=== PATIENT | female | born 1995 | race Caucasian/White ===

== ENCOUNTER 2016-11-13 02:38 | Emergency (ER) | payer OTHER ==
[2016-11-13] MEDS ORDERED: DEXAMETHASONE 10 MG/ML VIAL PO STA (02:59)
[2016-11-13] MEDS ORDERED: ALBUTEROL NEB 2.5 MG/3 ML INH STA (02:59)
[2016-11-13] MEDS ORDERED: CETIRIZINE 10 MG TABLET PO STA (02:59)
[2016-11-13] MEDS ORDERED: ALBUTEROL NEB 2.5 MG/3 ML INH ONE (03:11)
[2016-11-13] MEDS ORDERED: CETIRIZINE 10 MG TABLET ONE (03:17)
[2016-11-13] MEDS ORDERED: CHERRY SYRUP 10 ML UDC PO ONE (03:17)
[2016-11-13] MEDS ORDERED: DEXAMETHASONE 10 MG/ML VIAL ONE (03:17)
--- NOTE | 2016-11-13 03:37 | ED Physician Documentation ---
PD HPI DYSPNEA - Stated complaint Stated Complaint: DIFF BREATHING - Chief complaint Chief Complaint: Resp - History obtained from History obtained from: Patient - History of Present Illness Timing - onset: How many days ago (few) Timing - onset during: Light activity Timing - duration: Days (few days of some cough, congestion and increased wheezing, feeling like her asthma is increased.) Timing - details: Gradual onset, Waxing and waning Inciting event(s): URI. No: Out of meds, Allergic rxn/anaphylaxis, Immobilization/travel Worsened by: Exertion, Coughing. No: Laying flat Associated symptoms: Cough, Wheezing. No: Fever, Hemoptysis, Chest pain / discomfort Similar symptoms before: Diagnosis (asthma, allergies, URIs.) Recently seen: Emergency Dept (seen at [facility] earlier today with neb treatment. No other Rx given, per patient. had pelvic U/S for early .) Review of Systems Constitutional: denies: Fever, Chills Nose: reports: Rhinorrhea / runny nose, Congestion Throat: denies: Sore throat Respiratory: reports: Cough GI: reports: Nausea. denies: Vomiting, Diarrhea : reports: Now EGA (8 weeks). denies: Vaginal bleeding PD PAST MEDICAL HISTORY - Past Medical History Past Medical History: Yes Cardiovascular: None Respiratory: Asthma Neuro: None Endocrine/Autoimmune: None GI: None SECONDARY CONNECTOR ARMATURE: None : None HEENT: None Psych: None Musculoskeletal: None Derm: None - Past Surgical History Past Surgical History: No - Present Medications Home Medications: Ambulatory Orders Medication Instructions Recorded Confirmed Albuterol Sulfate [Proair Hfa 1 - 2 puffs IH Q4H PRN 12/30/15 11/13/16 Inhaler] Cetirizine [ZyrTEC] 10 mg PO DAILY #15 tablet 11/13/16 Dexamethasone [Decadron] 4 mg PO DAILY #5 tablet 11/13/16 Montelukast [Singulair] 10 mg PO QPM #20 tablet 11/13/16 - Allergies Allergies/Adverse Reactions: Allergies Allergy/AdvReac Type Severity Reaction Status Date / Time amoxicillin [Amoxicillin] Allergy Rash Verified 11/09/15 22:36 - Social History Does the pt smoke?: No Smoking Status: Never smoker Does the pt drink ETOH?: No Does the pt have substance abuse?: No - Immunizations Immunizations are current?: Yes - POLST Patient has POLST: No PD ED PE NORMAL - Vitals Vital signs reviewed: Yes - General General: Alert and oriented X 3, No acute distress, Well developed/nourished - HEENT HEENT: Ears normal, Pharynx benign - Neck Neck: Supple, no meningeal sign, No adenopathy - Cardiac Cardiac: RRR, No murmur - Respiratory Respiratory: No respiratory distress, Other (scattered expiratory wheezing. ) - Abdomen Abdomen: Soft, Non tender Results - Vitals Vitals: Vital Signs - 24 hr 11/13/16 11/13/16 11/13/16 02:43 03:10 03:46 Temperature 36.1 C L Heart Rate 109 H 108 H 74 Respiratory 18 18 17 Rate Blood Pressure 117/74 116/64 O2 Saturation 100 98 Oxygen O2 Source Room air PD MEDICAL DECISION MAKING - ED course Complexity details: re-evaluated patient (improved with neb here. Likely URI and so can add steroid and antihistamine. Has history of some allergies, so Rx Singular as well. These are verified okay in . ), considered differential, d/w patient Departure - Departure Disposition: 01 Home, Self Care Clinical Impression: Exacerbation of asthma Dyspnea Qualifiers: Dyspnea type: shortness of breath Qualified Code(s): R06.02 - Shortness of breath Upper respiratory tract infection Qualifiers: URI type: unspecified URI Qualified Code(s): J06.9 - Acute upper respiratory infection, unspecified Condition: Stable Record reviewed to determine appropriate education?: Yes Instructions: ED URI Viral W Wheezing Prescriptions: Dexamethasone [Decadron] 4 mg PO DAILY #5 tablet Montelukast [Singulair] 10 mg PO QPM #20 tablet Cetirizine [ZyrTEC] 10 mg PO DAILY #15 tablet Comments: Since it sounds like garcia have a cold too, as well as the exacerbation of asthma, I would try Decadron steroid for 5 more days and Cetirizine antihistamine for a week or so. These are more likely to be effective if a cold as well. For the asthma component, use your Albuterol inhaler or nebulizer 4 times daily. If there is some seasonal/environmental allergy component at this time, then 2-3 weeks of Singulair might also be helpful. These are all okay in . Discharge Date/Time: 11/13/16 03:50
[2016-11-13 03:47] VITALS: BP 116/64
== END 2016-11-13 03:50 | disposition home or self-care (01) ==
LOC: ED 02:38
DX: O99.511 Diseases of the respiratory system complicating pregnancy, first trimester (principal); J45.901 Unspecified asthma with (acute) exacerbation; J06.9 Acute upper respiratory infection, unspecified; Z3A.08 8 weeks gestation of pregnancy
CPT/HCPCS: 94640; 99283; 99284; A9270; J7613

== ENCOUNTER 2016-11-16 21:47 | Emergency (ER) | payer OTHER ==
[2016-11-16 21:54] VITALS: BP 122/83
== END 2016-11-16 22:18 | disposition left against medical advice (07) ==
LOC: ED 21:47
DX: Z53.21 Procedure and treatment not carried out due to patient leaving prior to being seen by health care provider (principal)

== ENCOUNTER 2017-08-17 16:26 | Emergency (ER) | payer OTHER ==
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
--- NOTE | 2017-08-17 18:04 | XRAY Report ---
Procedure Date: 08/17/2017 Accession Number: [id number] / [id number] Procedure: XR - Lumbar Spine 2 View CPT Code: FULL RESULT: EXAM: LUMBOSACRAL SPINE RADIOGRAPHY EXAM DATE: 08/17/2017 05:45 PM. CLINICAL HISTORY: Back injury. COMPARISONS: 12/29/2015. TECHNIQUE: 3 views. FINDINGS: Alignment: Normal. No spondylolisthesis or scoliosis. Bones: Five rem-ecp-qxefuwy lumbar vertebral bodies are present. No fractures or bone lesions. Disks: Normal. Disk heights are maintained. Facets: No degenerative changes. Sacroiliac Joints: Unremarkable. Soft Tissues: Normal. The visualized bowel gas pattern is normal. IMPRESSION: Normal lumbar spine radiography. RADIA
[2017-08-17 18:47] VITALS: BP 113/58
== END 2017-08-17 18:45 | disposition home or self-care (01) ==
LOC: ED 16:26
DX: M54.5 Low back pain (principal); Y04.2XXA Assault by strike against or bumped into by another person, initial encounter; W10.9XXA Fall (on) (from) unspecified stairs and steps, initial encounter
CPT/HCPCS: 72100; 99283

== ENCOUNTER 2020-04-13 10:33 | Emergency (ER) | payer OTHER ==
[2020-04-13 10:40] VITALS: BP 126/97
--- NOTE | 2020-04-13 11:44 | ED Physician Documentation ---
PD HPI DYSPNEA - Stated complaint Stated Complaint: SOA - Chief complaint Chief Complaint: Resp - History obtained from History obtained from: Patient - History of Present Illness Timing - onset: Today Timing - onset during: Light activity Timing - duration: Minutes Timing - details: Abrupt onset, Now resolved Inciting event(s): Other (has asthma and anxiety) Improved by: Inhaler/neb Worsened by: Coughing Associated symptoms: Wheezing Similar symptoms before: Diagnosis (asthma exacerbation) Recently seen: Emergency Dept, Admitted - Additional information Additional information: 25-year-old female the lifelong history of asthma and anxiety has may be 50 emergency department visits to her hospital where she normally resides and she is visiting here on . She got into the shower this morning and during the shower out of nowhere developed acute dyspnea. She got out of the shower she used her inhaler without improvement she subsequently used a DuoNeb treatment on a nebulizer this did not seem to help either so she made her way to the hospital her symptoms are now resolved in the hospital. She states that this is happened to her a number of times previously she does know she has some anxiety she did not feel like this was anxiety today. She feels well now does not feel like there is any specific treatment required. She does have a history significant enough for asthma that she has had to be intubated last month. She is on a prednisone dose of 20 mg daily now she is not usually compliant with her prednisone regimen. She does use an inhaled steroid she has a nebulizer and albuterol as well. Review of Systems Constitutional: denies: Fever Eyes: denies: Decreased vision Ears: denies: Ear pain Nose: reports: Rhinorrhea / runny nose, Congestion Throat: denies: Sore throat Cardiac: denies: Chest pain / pressure, Palpitations Respiratory: reports: Dyspnea, Cough, Wheezing GI: denies: Abdominal Pain, Nausea, Vomiting : denies: Dysuria, Frequency PD PAST MEDICAL HISTORY - Past Medical History Cardiovascular: None Respiratory: Asthma Endocrine/Autoimmune: None GI: None SECURITY ASSESSOR: None : None HEENT: None Psych: None Musculoskeletal: None Derm: None - Past Surgical History Past Surgical History: No /SECURITY ASSESSOR: Other - Present Medications Home Medications: Ambulatory Orders Medication Instructions Recorded Confirmed Albuterol Sulfate [Proair 1 - 2 puffs PO PRN PRN 04/13/20 04/13/20 Respiclick] Azithromycin [Zithromax] 250 mg PO DAILY #6 tab 04/13/20 Budesonide [Pulmicort] 1 mg PO PRN PRN 04/13/20 04/13/20 Budesonide/Formoterol Fumarate 1 - 2 puffs PO DAILY 04/13/20 04/13/20 [Symbicort 160-4.5 Mcg Inhaler] Citalopram [CeleXA] 1 tab PO DAILY 04/13/20 04/13/20 Norethindrone-E.estradiol-Iron 1 tab PO DAILY 04/13/20 04/13/20 [Loestrin Fe 1-20 Tablet] hydrOXYzine HCL [Hydroxyzine HCl] 1 tab PO DAILY 04/13/20 04/13/20 predniSONE [Deltasone] 20 mg PO DAILY 04/13/20 04/13/20 - Allergies Allergies/Adverse Reactions: Allergies Allergy/AdvReac Type Severity Reaction Status Date / Time amoxicillin [Amoxicillin] Allergy Rash Verified 04/13/20 10:36 - Social History Does the pt smoke?: No Smoking Status: Never smoker Does the pt drink ETOH?: No Does the pt have substance abuse?: Yes - Immunizations Immunizations are current?: Yes - POLST Patient has POLST: No PD ED PE NORMAL - Vitals Vital signs reviewed: Yes (tachy and hypertensive with tachynea) - General General: Alert and oriented X 3, No acute distress, Well developed/nourished, Other (breathing well without effort on my evaluation ) - HEENT HEENT: Atraumatic, PERRL, EOMI, Pharynx benign, Other (The right TM is flush with flattened landmarks the left is clear.) - Neck Neck: Supple, no meningeal sign, No bony TTP - Cardiac Cardiac: RRR, No murmur - Respiratory Respiratory: No respiratory distress, Clear bilaterally - Abdomen Abdomen: Soft, Non tender - Back Back: No CVA TTP, No spinal TTP - Derm Derm: Normal color, Warm and dry, No rash - Extremities Extremities: No deformity, No edema - Neuro Neuro: Alert and oriented X 3, field spec 2-12 intact, No motor deficit, No sensory deficit, Normal speech Eye Opening: Spontaneous Motor: Obeys Commands Verbal: Oriented GCS Score: 15 - Psych Psych: Normal mood, Normal affect Results - Vitals Vitals: Vital Signs - 24 hr 04/13/20 10:37 Temperature 36.4 C L Heart Rate 118 H Respiratory 26 H Rate Blood Pressure 126/97 H O2 Saturation 100 Oxygen O2 Source Room air PD MEDICAL DECISION MAKING - ED course Complexity details: reviewed old records, considered differential, d/w patient ED course: 25-year-old female a lifelong history of asthma is under treatment with both a DuoNeb and a regular inhaler as well as a Symbicort inhaler and she is on 20 mg prednisone daily. On examination today her lungs are clear she feels well at the time of my evaluation and does not feel further treatment is required here at the hospital. She does have otitis on exam and she has had this issue previously a number of times. She does not recall the names of antibiotic she has been on. I have offered to place her on a Z-Castro I do not see other maneuvers to do for treatment. Departure - Departure Disposition: 01 Home, Self Care Clinical Impression: Exacerbation of asthma Qualifiers: Asthma severity: moderate Asthma persistence: persistent Qualified Code(s): J45.41 - Moderate persistent asthma with (acute) exacerbation Otitis media Qualifiers: Otitis media type: suppurative Chronicity: acute Laterality: right Recurrence: not specified as recurrent Spontaneous tympanic membrane rupture: without spontaneous rupture Qualified Code(s): H66.001 - Acute suppurative otitis media without spontaneous rupture of ear drum, right ear Condition: Stable Instructions: ED Otitis Media Acute Adult Follow-Up: Your, doctor [Other] Prescriptions: Azithromycin [Zithromax] 250 mg PO DAILY #6 tab
== END 2020-04-13 12:05 | disposition home or self-care (01) ==
LOC: ED 10:33
DX: J45.41 Moderate persistent asthma with (acute) exacerbation (principal); H66.001 Acute suppurative otitis media without spontaneous rupture of ear drum, right ear; F41.9 Anxiety disorder, unspecified
CPT/HCPCS: 99284; 99285

== ENCOUNTER 2020-04-13 20:59 | Emergency (ER) | payer OTHER ==
--- NOTE | 2020-04-13 21:05 | ED Physician Documentation ---
PD HPI DYSPNEA - Stated complaint Stated Complaint: SOA - History of Present Illness Timing - onset: How many days ago (2-3) Timing - onset during: Rest, Light activity Timing - duration: Days (2-3) Timing - details: Gradual onset, Still present (worse again this evening.), Waxing and waning Inciting event(s): No: Out of meds, URI (not having any chills, fevers, productive cough. Does have mild congestion. Having worse wheeze/asthma symptoms.) Improved by: No: Inhaler/neb (was some improved with MDI/neb at home, but then stopped improving symptoms this evening. Was seen in office few days ago and had started on Prednisone 20 mg daily.) Worsened by: Exertion (walking around), Coughing Associated symptoms: Wheezing, Chest pain / discomfort. No: Fever, Cough, Hemoptysis, Palpitations, Bilateral edema Recently seen: Clinic (few days ago with onset of wheezing/dyspnea and Rx Prednisone 20 mg daily. Seen earlier today with wheezing episode but had improved by ED arrival so no meds/treatments. She states got worse into this evening.) Review of Systems Constitutional: denies: Fever, Chills Ears: denies: Ear pain, Drainage/discharge Nose: denies: Rhinorrhea / runny nose, Congestion Throat: denies: Sore throat Cardiac: reports: Chest pain / pressure. denies: Palpitations, Pedal edema, Calf pain Respiratory: reports: Dyspnea, Cough (mild nonporductive), Wheezing. denies: Hemoptysis GI: reports: Nausea. 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 : None HEENT: None Psych: None Musculoskeletal: None Derm: None - Past Surgical History Past Surgical History: No /ENVIRONMENTAL HEALTH TECHNOLOGIST: Other - Present Medications Home Medications: Ambulatory Orders Medication Instructions Recorded Confirmed Albuterol Sulfate [Proair 1 - 2 puffs PO PRN PRN 04/13/20 04/13/20 Respiclick] Azithromycin [Zithromax] 250 mg PO DAILY #6 tab 04/13/20 Budesonide [Pulmicort] 1 mg PO PRN PRN 04/13/20 04/13/20 Budesonide/Formoterol Fumarate 1 - 2 puffs PO DAILY 04/13/20 04/13/20 [Symbicort 160-4.5 Mcg Inhaler] Citalopram [CeleXA] 1 tab PO DAILY 04/13/20 04/13/20 LORazepam [Ativan] 0.5 mg PO BID PRN #8 tab 04/13/20 Norethindrone-E.estradiol-Iron 1 tab PO DAILY 04/13/20 04/13/20 [Loestrin Fe 1-20 Tablet] hydrOXYzine HCL [Hydroxyzine HCl] 1 tab PO DAILY 04/13/20 04/13/20 predniSONE [Deltasone] 20 mg PO DAILY 04/13/20 04/13/20 predniSONE [Deltasone] 40 mg PO DAILY 5 Days #10 04/13/20 - Allergies Allergies/Adverse Reactions: Allergies Allergy/AdvReac Type Severity Reaction Status Date / Time amoxicillin [Amoxicillin] Allergy Rash Verified 04/13/20 10:36 - Social History Does the pt smoke?: No Smoking Status: Never smoker Does the pt drink ETOH?: No Does the pt have substance abuse?: Yes - Immunizations Immunizations are current?: Yes - POLST Patient has POLST: No PD ED PE NORMAL - Vitals Vital signs reviewed: Yes (sats are good; HR is fast but regular. ) - General General: Alert and oriented X 3, Well developed/nourished, Other - HEENT HEENT: Ears normal (some mild fluid behind right TM, not red. ), Moist mucous membranes, Pharynx benign - Neck Neck: Supple, no meningeal sign, No adenopathy - Cardiac Cardiac: No murmur. No: RRR (tachycardic but regular. Monitor showing sinus tach. ) - Respiratory Respiratory: No respiratory distress. No: Clear bilaterally (mild general wheezing, but there is diminished breath sounds diffusely and prolonged expiratory phase. ) - Abdomen Abdomen: Soft, Non tender - Derm Derm: Normal color, Warm and dry - Extremities Extremities: Normal ROM s pain, No edema, No calf tenderness / cord, Other (mild general shakiness, likely c/w nebs/MDI use at home. ) - Neuro Neuro: Alert and oriented X 3, No motor deficit, Normal speech - Psych Psych: No: Normal affect (anxious) Results - Vitals Vitals: Vital Signs - 24 hr 04/13/20 04/13/20 04/13/20 21:09 21:11 21:27 Temperature 37.4 C 37.4 C Heart Rate 150 H 112 H 112 H Respiratory 26 H 23 23 Rate Blood Pressure 119/78 119/78 O2 Saturation 95 95 04/13/20 04/13/20 04/13/20 22:03 22:38 22:50 Temperature 37.4 C 37.4 C 37.4 C Heart Rate 118 H 118 H 109 H Respiratory 17 20 19 Rate Blood Pressure 111/89 H 122/74 123/73 O2 Saturation 100 98 100 Oxygen O2 Source Room air - EKG (time done) 21:49 Rate: Rate (enter#) (119) Rhythm: Sinus tachycardia [place]: Normal Intervals: Normal [place] QRS: Normal Ischemia: Normal ST segments. No: ST elevation c/w ischemia, ST depression - Labs Labs: Laboratory Tests 04/13/20 04/13/20 21:40 21:40 WBC 9.5 RBC 5.57 H Hgb 12.5 Hct 40.7 MCV 73.1 L MCH 22.4 L MCHC 30.7 L RDW 17.4 H Plt Count 405 MPV 9.4 Neut # (Auto) 5.0 Lymph # (Auto) 3.3 [place] # (Auto) 0.6 Eos # (Auto) 0.6 Baso # (Auto) 0.1 Absolute Nucleated RBC 0.00 Nucleated RBC % 0.0 Sodium 140 Potassium 3.7 Chloride 104 Carbon Dioxide 23 Anion Gap 13.0 BUN 9 Creatinine 0.7 Estimated GFR (MDRD) 103 Glucose 105 H Calcium 9.9 - Rads (name of study) chest xray Radiology: Prelim report reviewed (no infiltrates; no acute findings. ), See rad report PD MEDICAL DECISION MAKING - ED course Complexity details: reviewed results (norml chest xray. sinus tach on ECG. ), re-evaluated patient (improved breathing with neb treatment, Mag IV, and general improvement with Ativan as well. Given extra steroid dose. ), considered differential (having some work of breathing, with prolonged expirations. Some wheezing. Also seems anxious. Has been using MID/nebulizer at home, so some shaky from that. ), d/w patient Departure - Departure Disposition: 01 Home, Self Care Clinical Impression: Anxiety Exacerbation of asthma Qualifiers: Asthma severity: mild Asthma persistence: intermittent Qualified Code(s): J45.21 - Mild intermittent asthma with (acute) exacerbation Dyspnea Qualifiers: Dyspnea type: shortness of breath Qualified Code(s): R06.02 - Shortness of breath Condition: Stable Record reviewed to determine appropriate education?: Yes Prescriptions: LORazepam [Ativan] 0.5 mg PO BID PRN #8 tab PRN Reason: Anxiety predniSONE [Deltasone] 40 mg PO DAILY 5 Days #10 Comments: Continue with your nebulizer or inhaler with spacer 3 puffs 4 times a day for the next several days to week. Extra times as needed. I would suggest increasing your prednisone to 60 mg daily for 2 days then 40 mg for 2 days then back to the 20 mg. I wrote it extra prescription in case he needed more. As far as the anxiety with this, you can try lorazepam twice daily if needed for anxiety episodes. Not necessarily intended regularly. Follow-up with your primary care next week for reevaluation. Your ear appears well today. It may have been just inflammatory and not infected. I would leave it up to you whether to do the Zithromax antibiotic. Recheck if not improving over few days and return if worse again. Discharge Date/Time: 04/13/20 22:50
[2020-04-13] MEDS ORDERED: SODIUM CHLORIDE 0.9% 1,000 ML IV STA (21:19)
[2020-04-13] MEDS ORDERED: IPRATROPIUM/ALBUTEROL 3 ML NEB INH STA (21:20)
[2020-04-13] MEDS ORDERED: MAGNESIUM SULFATE 2 GRAM 2 GM/50 ML BAG IV ONE (21:20)
[2020-04-13] MEDS ORDERED: DEXAMETHASONE 10 MG/ML VIAL IVP STA (21:20)
[2020-04-13] MEDS ORDERED: LORazepam 2 MG/ML VIAL IVP STA (21:20)
[2020-04-13 21:48] LABS: BASOPHILS # (AUTO) 0.1 10^3/uL (0.0-0.1); BASOPHILS % (AUTO) 0.8 %; EOSINOPHILS # (AUTO) 0.6 10^3/uL (0.0-0.7); EOSINOPHILS % (AUTO) 6.1 %; HGB - HEMOGLOBIN 12.5 g/dL (12.0-16.0); LYMPHOCYTES # (AUTO) 3.3 10^3/uL (1.5-3.5); LYMPHOCYTES % (AUTO) 34.6 %; MEAN CORPUSCULAR HEMOGLOBIN 22.4 pg (27.0-31.0); MEAN CORPUSCULAR HGB CONC 30.7 g/dL (32.0-36.0); MEAN CORPUSCULAR VOLUME 73.1 fL (81.0-99.0); MEAN PLATELET VOLUME 9.4 fL (7.9-10.8); MONOCYTES # (AUTO) 0.6 10^3/uL (0.0-1.0); NEUTROPHILS % (AUTO) 52.3 %; PLT - PLATELET COUNT 405 10^3/uL (130-450); RED BLOOD COUNT 5.57 10^6/uL (4.20-5.40); RED CELL DISTRIBUTION WIDTH 17.4 % (12.0-15.0); WHITE BLOOD COUNT 9.5 x10^3/uL (4.8-10.8)
[2020-04-13 21:54] LABS: CALCIUM 9.9 mg/dL (8.5-10.3); CREATININE 0.7 mg/dL (0.4-1.0)
--- NOTE | 2020-04-13 21:58 | XRAY Report ---
PROCEDURE: Chest 1 View X-Ray INDICATIONS: dyspnea, hurts to breath, asthma TECHNIQUE: One view of the chest was acquired. COMPARISON: 11/01/2015. FINDINGS: Surgical changes and devices: Bilateral nipple piercings. Lungs and pleura: No pleural effusions or pneumothorax. Lungs are clear. Mediastinum: Mediastinal contours appear normal. Heart size is normal. Bones and chest wall: No suspicious bony lesions. Overlying soft tissues appear unremarkable. IMPRESSION: No acute cardiopulmonary disease process. Reviewed by: Susan Romo MD, PhD on 04/13/2020 9:57 PM PST Approved by: Susan Romo MD, PhD on 04/13/2020 9:57 PM PST Station ID: [id number]
[2020-04-13] MEDS ORDERED: ACETAMINOPHEN 325 MG TABLET PO STA (22:13)
[2020-04-13] MEDS ORDERED: KETOROLAC 30 MG/ML VIAL IVP STA (22:13)
[2020-04-13 22:51] VITALS: BP 123/73
== END 2020-04-13 22:50 | disposition home or self-care (01) ==
LOC: ED 20:59
DX: J45.41 Moderate persistent asthma with (acute) exacerbation (principal); F41.9 Anxiety disorder, unspecified; R00.0 Tachycardia, unspecified; H66.001 Acute suppurative otitis media without spontaneous rupture of ear drum, right ear
CPT/HCPCS: 36415; 71045; 80048; 85025; 93005; 94640; 94664; 96365; 96375; 99284; 99285; A9270; J2060

== ENCOUNTER 2022-05-29 19:20 | Emergency (ER) | payer MEDICAID, OTHER ==
--- NOTE | 2022-05-29 19:56 | ED Physician Documentation ---
PD HPI DYSPNEA - Stated complaint Stated Complaint: WHEEZY, SOA - Chief complaint Chief Complaint: Resp - History obtained from History obtained from: Patient, Family - History of Present Illness Timing - onset: How many days ago (2) Timing - onset during: Rest Timing - duration: Days (2) Timing - details: Gradual onset, Still present Inciting event(s): Out of meds Improved by: Inhaler/neb Worsened by: Exertion Associated symptoms: Wheezing. No: Fever, Cough, Chest pain / discomfort Similar symptoms before: Diagnosis (asthma) Recently seen: Not recently seen - Additional information Additional information: 27-year-old Sherry Kelsey has a lifelong history of asthma and anxiety and she has had some improvement in her in her management of her asthma and has had reduced number of emergency department visits. She is visiting here from [place] and will be here for about a month. She is visiting her parents and working on her mental health. She states that she is not currently having an issue with her asthma other than that she is out of her albuterol inhaler and her doctor will not refill this over the phone without seeing her. She denies exacerbation of her asthma and has been using her nebulizer but would like to have her inhaler for use out of the house. 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: Other - Present Medications Home Medications: Ambulatory Orders Medication Instructions Recorded Confirmed Albuterol Sulfate [Proair 1 - 2 puffs PO PRN PRN 04/13/20 05/29/22 Respiclick] Azithromycin [Zithromax] 250 mg PO DAILY #6 tab 04/13/20 Budesonide [Pulmicort] 1 mg PO PRN PRN 04/13/20 04/13/20 Budesonide/Formoterol Fumarate 1 - 2 puffs PO DAILY 04/13/20 04/13/20 [Symbicort 160-4.5 Mcg Inhaler] Citalopram [CeleXA] 1 tab PO DAILY 04/13/20 04/13/20 LORazepam [Ativan] 0.5 mg PO BID PRN #8 tab 04/13/20 Norethindrone-E.estradiol-Iron 1 tab PO DAILY 04/13/20 04/13/20 [Loestrin Fe 1-20 Tablet] Albuterol Sulf [Ventolin Hfa 1 - 2 puffs INH Q4HR PRN #1 each 05/29/22 Inhaler] - Allergies Allergies/Adverse Reactions: Allergies Allergy/AdvReac Type Severity Reaction Status Date / Time amoxicillin [Amoxicillin] Allergy Rash Verified 05/29/22 19:34 - Social History Does the pt smoke?: No Smoking Status: Never smoker Does the pt drink ETOH?: No Does the pt have substance abuse?: Yes - Immunizations Immunizations are current?: Yes - POLST Patient has POLST: No PD ED PE NORMAL - Vitals Vital signs reviewed: Yes (tachy and hypertensive mild ) - General General: Alert and oriented X 3, Well developed/nourished - HEENT HEENT: Atraumatic, PERRL, EOMI - Neck Neck: Supple, no meningeal sign, No bony TTP - Cardiac Cardiac: RRR, No murmur - Respiratory Respiratory: No respiratory distress, Clear bilaterally - Abdomen Abdomen: Soft, Non tender - Back Back: No CVA TTP, No spinal TTP - Derm Derm: Normal color, Warm and dry, No rash - Extremities Extremities: No deformity, No edema - Neuro Neuro: Alert and oriented X 3, control electrician 2-12 intact, No motor deficit, No sensory deficit, Normal speech Eye Opening: Spontaneous Motor: Obeys Commands Verbal: Oriented GCS Score: 15 - Psych Psych: Normal mood, Normal affect Results - Vitals Vitals: Vital Signs - 24 hr 05/29/22 19:30 Temperature 36.6 C Heart Rate 112 H Respiratory 17 Rate Blood Pressure 134/78 H O2 Saturation 98 Oxygen O2 Source Room air PD Medical Decision Making - ED course Complexity details: considered differential, d/w patient, d/w family ED course: 27-year-old female with lifelong history of asthma has run out of her house by inhaler and we will refill her albuterol inhaler today. I will refer her to the clinic in [place] as [place] Departure - Departure Disposition: 01 Home, Self Care Clinical Impression: Asthma Qualifiers: Asthma severity: mild Asthma persistence: intermittent Asthma complication type: uncomplicated Qualified Code(s): J45.20 - Mild intermittent asthma, uncomplicated Condition: Stable Instructions: INHALER, Bronchodilator Follow-Up: [facility] [place] [Provider Group] Prescriptions: Albuterol Sulf [Ventolin Hfa Inhaler] 1 - 2 puffs INH Q4HR PRN #1 each PRN Reason: Shortness Of Air/Wheezing Comments: Sherry, today it looks like you are not having an exacerbation of your asthma but simply need your albuterol inhaler. This has been E scribed to the [facility] in [place]. [place] need to follow-up I have referred you to the [facility] primary care clinic in [place].
[2022-05-29 20:10] VITALS: BP 134/76
== END 2022-05-29 20:50 | disposition home or self-care (01) ==
LOC: ED 19:20
DX: Z76.0 Encounter for issue of repeat prescription (principal); J45.20 Mild intermittent asthma, uncomplicated
CPT/HCPCS: 99281; 99283

== ENCOUNTER 2022-05-31 23:34 | Emergency (ER) | payer SELFPAY ==
[2022-05-31] MEDS ORDERED: LORazepam 0.5 MG TABLET PO STA (23:45)
[2022-06-01 01:08] VITALS: BP 117/91
--- NOTE | 2022-06-01 01:15 | ED Physician Documentation ---
PD HPI DYSPNEA - Stated complaint Stated Complaint: SOA - Chief complaint Chief Complaint: Resp - History obtained from History obtained from: Patient - Additional information Additional information: 27-year-old woman with history of anxiety and asthma presents with shortness of breath and wheezing today. Patient states that she took 30 puffs of her albuterol inhaler and 4 nebulizer treatments. Denies cough, hemoptysis, fever, chest pain, nausea, abdominal pain, leg swelling, history of clots, hormone use. Review of Systems Constitutional: denies: Fever Cardiac: reports: Palpitations. denies: Chest pain / pressure Respiratory: reports: Dyspnea. 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 : None HEENT: None Psych: None Musculoskeletal: None Derm: None - Past Surgical History Past Surgical History: No /HUMANITIES DEPARTMENT CHAIR: Other - Present Medications Home Medications: Ambulatory Orders Medication Instructions Recorded Confirmed Albuterol Sulfate [Proair 1 - 2 puffs PO PRN PRN 04/13/20 05/29/22 Respiclick] Azithromycin [Zithromax] 250 mg PO DAILY #6 tab 04/13/20 Budesonide [Pulmicort] 1 mg PO PRN PRN 04/13/20 04/13/20 Budesonide/Formoterol Fumarate 1 - 2 puffs PO DAILY 04/13/20 04/13/20 [Symbicort 160-4.5 Mcg Inhaler] Citalopram [CeleXA] 1 tab PO DAILY 04/13/20 04/13/20 LORazepam [Ativan] 0.5 mg PO BID PRN #8 tab 04/13/20 Norethindrone-E.estradiol-Iron 1 tab PO DAILY 04/13/20 04/13/20 [Loestrin Fe 1-20 Tablet] Albuterol Sulf [Ventolin Hfa 1 - 2 puffs INH Q4HR PRN #1 each 05/29/22 Inhaler] - Allergies Allergies/Adverse Reactions: Allergies Allergy/AdvReac Type Severity Reaction Status Date / Time amoxicillin [Amoxicillin] Allergy Rash Verified 05/31/22 23:40 - Social History Does the pt smoke?: No Smoking Status: Never smoker Does the pt drink ETOH?: No Does the pt have substance abuse?: Yes - Immunizations Immunizations are current?: Yes - POLST Patient has POLST: No PD ED PE NORMAL - Vitals Vital signs reviewed: Yes - General General: Alert and oriented X 3, No acute distress, Well developed/nourished - HEENT HEENT: Atraumatic, PERRL, EOMI, Moist mucous membranes, Pharynx benign - Neck Neck: Supple, no meningeal sign - Cardiac Cardiac: Other (Tachycardic rate, regular rhythm) - Respiratory Respiratory: No respiratory distress, Clear bilaterally - Abdomen Abdomen: Non tender, Non distended - Psych Psych: Other (Anxious appearing) Results - Vitals Vitals: Vital Signs - 24 hr 05/31/22 06/01/22 06/01/22 23:40 00:08 01:07 Temperature 36.8 C Heart Rate 148 H 108 H 103 H Respiratory 24 16 16 Rate Blood Pressure 123/88 H 122/87 H 117/91 H O2 Saturation 100 99 99 Oxygen O2 Source Room air PD Medical Decision Making - ED course ED course: 37-year-old woman presented with acute shortness of breath, found to be tachycardic in the emergency department after taking repeated doses of albuterol throughout the day today. Her exam was relatively benign with the exception of sinus tachycardia. This improved after receiving Ativan. Low suspicion for PE, pneumonia, or other infectious etiology given history and exam. Most likely combination of albuterol side effects and anxiety causing her tachycardia. Patient improved in subjective shortness of breath and her heart rate came down after receiving oral ativan. Return precautions given. Plan to follow-up with primary care provider. Departure - Departure Disposition: 01 Home, Self Care Clinical Impression: Shortness of breath Condition: Good Instructions: ED Dyspnea Shortness of Breath Comments: You were seen in the emergency department for shortness of breath. Your lungs did not show any sign of wheezing. You did have an increased heart rate that was likely related to heavy albuterol use. It is also possible that anxiety may have played a role because you improved significantly after getting oral Ativan, an antianxiety medication that can help ease breathing. Please follow- up with your primary care provider. Return to the emergency department for new or worsening symptoms or other concerns.
== END 2022-06-01 01:16 | disposition home or self-care (01) ==
LOC: ED 23:34
DX: R06.02 Shortness of breath (principal)
CPT/HCPCS: 99282; 99283; A9270